=== PATIENT | female | born 1955 | race Caucasian/White ===

== ENCOUNTER → 2019-12-10 | Outpatient (CLI) | payer OTHER | LOC: LABNPT 06:44 | PROVIDERS: ATTEND Orthopaedic Surgery | DX: Z20.828 Contact with and (suspected) exposure to other viral communicable diseases (principal) | CPT/HCPCS: 87635 ==

== ENCOUNTER 2023-05-24 11:01 | Outpatient (CLI) | payer MEDICARE, OTHER ==
[~2023-05-24] VITALS: Ht 167.6 cm; Wt 74.8 kg
[2023-05-25] MEDS ORDERED: PANT40TA2 PO (11:55)
== END 2023-05-24 15:01 | disposition home or self-care (01) ==
LOC: PREOP 11:01
PROVIDERS: ATTEND Surgery
DX: Z01.818 Encounter for other preprocedural examination (principal)

== ENCOUNTER 2023-05-25 10:17 | Day surgery (SDC) | payer MEDICARE, OTHER ==
[~2023-05-25] VITALS: Ht 167.6 cm; Wt 74.8 kg
[2023-05-25] MEDS ORDERED: LACTATED RINGERS 1,000 ML 1,000 ML IV STA (10:47)
[2023-05-25] MEDS ORDERED: HURRICAINE EXT TUBE (BENZOCAINE) XX PRN (11:00)
[2023-05-25] MEDS ORDERED: LIDOCAINE JELLY 2% 6 ML SYRINGE MM PRN (11:00)
[2023-05-25 11:32] VITALS: BP 173/93
--- NOTE | 2023-05-25 11:54 | Progress Note-Pre Operative ---
Pre-Operative Progress Note Date of Available H&P: May 25, 2023 Date H&P Reviewed: May 25, 2023 Time H&P Reviewed: 11:30 History & Physical: No changes noted Pre-Operative Diagnosis: GERD, dysphagia JUAN MANUEL HERNANDEZ MD May 25, 2023 11:54
[2023-05-25] MEDS ORDERED: PANT40TA2 PO (11:55)
--- NOTE | 2023-05-25 11:56 | Discharge Inst-Surgical ---
D/C Lap Instructions-KIDO New, Converted, or Re-Newed RX: RX on Chart Follow Up Activity as tolerated High Fiber Diet 25g or more per day Avoid Alcohol, Caffeine, Spicy [place] and Acid foods. Drink 64 fluid oz or more of fluids per day. Symptoms to Report: Fever over 101 degree F, Nausea/Vomiting If any problems/questions: Contact your physician or go to Emergency Room JUAN MANUEL HERNANDEZ MD May 25, 2023 11:56
[2023-05-25] MEDS ORDERED: ONDANSETRON 4 MG ORAL DISSOLVE TABLET PO PRN (12:00)
[2023-05-25] MEDS ORDERED: ONDANSETRON INJECTION 4 MG/2 ML (SDV) IVP PRN (12:00)
[2023-05-25] MEDS ORDERED: LIDOCAINE JELLY 2% 6 ML SYRINGE ONE (12:44)
[2023-05-25 13:16] VITALS: BP 108/64
[2023-05-25 13:21] VITALS: BP 111/62
[2023-05-25 13:25] VITALS: BP 111/62
--- NOTE | 2023-05-25 13:42 | Progress Note-Post Operative ---
Post-Operative Progess Note Surgeon (s)/Patternator (s) Surgeon JUAN MANUEL HERNANDEZ MD Patternator: none Pre-Operative Diagnosis GERD, dysphagia Post-Operative Diagnosis reflux esophagitis(grade B-C), dist esoph stricture, mod-large HH(4cm), mild gastritis. Procedure & Operative Findings Date of Procedure 05/25/23 Procedure Performed/Findings EGD with bx and balloon dilatation. Anesthesia Type mac Estimated Blood Loss Estimated blood loss (mL): minimal Specimens/Packing Specimens Removed ge jxn, antrum JUAN MANUEL HERNANDEZ MD May 25, 2023 13:42
[2023-05-25 13:55] VITALS: BP 139/91
[2023-05-25 14:20] VITALS: BP 139/91
--- NOTE | 2023-05-25 18:39 | OPERATIVE REPORT ---
DATE OF SERVICE: 05/25/2023 ATTENDING PRIMARY CARE PHYSICIAN: Dr. Roxanne Cope. PREOPERATIVE DIAGNOSES: Dysphagia, gastroesophageal reflux disease. POSTOPERATIVE DIAGNOSES: Reflux esophagitis, Trego grade B to C with distal esophageal stricture. Moderate to large size hiatal hernia approximately 4 cm in size, mild gastritis, no distal obstructions. PROCEDURE: EGD with biopsy and balloon dilatation. SURGEON: Juan Manuel Hernandez MD ANESTHESIA: Monitored anesthesia care. ESTIMATED BLOOD LOSS: Minimal. FINDINGS: Reflux esophagitis, Trego grade B to C with distal esophageal stricture. Moderate to large size hiatal hernia approximately 4 cm in size, mild gastritis, no distal obstructions. DISPOSITION: The patient tolerated the procedure well. INDICATIONS: The patient is a 67-year-old female who states that she has had a history of reflux and regurgitation for the past 2 years; however, this has progressed to issues with dysphagia for specific types of foods, which encompassed lean meats, dry breads and crackers as well as large amounts of raw vegetables. She states that the pressure sensation in the substernal region would ensue and this would usually be followed by regurgitation. She does not report any hematemesis, no coffee-ground emesis. She has never been evaluated with an upper endoscopy before in the past and is currently not on any acid reduction medications. DESCRIPTION OF PROCEDURE: The patient was brought to the endoscopy suite and laid in the left lateral decubitus position. After adequate IV pain and sedative medications and monitored anesthesia care, the mouthpiece was applied. The endoscope was then placed in the mouth, visualizing the pharynx and hypopharyngeal region. Vocal cords, epiglottis and vallecula identified and appeared to be normal. The endoscope was then gently intubated in the esophageal opening and esophagus insufflated. The endoscope was then advanced through the first, second, third portions of esophagus; at the level of the GE junction, reflux esophagitis between Trego grade B and C identified with a moderate distal esophageal stricture. A biopsy was taken with forceps with visualization of good hemostasis. The endoscope was then advanced into the stomach and endoscope retroflexed visualizing a moderate size hiatal hernia approximately 4 cm in size. There was a mild gastritis. No formal ulcerations, polyps or any neoplasms. A biopsy was taken of the antrum to rule out H. pylori with visualization of good hemostasis. The endoscope was then advanced into the pylorus and the first and second portion of the duodenum, which appeared normal with no distal obstructions. The endoscope was then slowly withdrawn while taking a second look. The balloon was then placed in the stomach and pulled back to the area of the stricture. We then proceeded with graded dilatation from 2, 4 then eventually 6 atmospheres of pressure with 60 seconds in between. Once we hit 6 atmospheres of pressure or 20 mm in luminal diameter, we encountered moderate resistance and left the balloon in place for 120 seconds. The balloon was then desufflated and removed with visualization of good hemostasis as well as no mucosal tears. The endoscope was then slowly withdrawn while taking a second look and suctioning of residual air with no additional findings. The patient tolerated the procedure well. We will recommend continued medical management with the necessary lifestyle and dietary accommodation, which would encompass small and more frequent meals, avoidance of eating at night as well as head elevation while lying supine. Also, not overeating per sitting. She also needs to avoid caffeinated beverages, spicy, greasy and acidic foods. We will also start her on pantoprazole 40 mg daily. It was explained to her that the root cause of her reflux and the development of the stricture being the hiatal hernia; however, she is only mild to moderately symptomatic at this time and has never tried medical management and we will proceed with medical management for now and it was also explained to the patient, there is a significant recurrence rate for the strictures and if she does redevelop dysphagia type of symptoms, she will have follow up in the office for a repeat dilatation. Job ID: [id number] DocumentID: [id number] Dictated Date: 05/25/2023 13:37:19 Filter Tip Catcher Date: 05/25/2023 18:37:00 Dictated By: JUAN MANUEL HERNANDEZ MD
== END 2023-05-25 14:20 | disposition home or self-care (01) ==
LOC: ENDO 10:17
PROVIDERS: ATTEND Surgery
DX: K21.00 Gastro-esophageal reflux disease with esophagitis, without bleeding (principal); K22.2 Esophageal obstruction; K44.9 Diaphragmatic hernia without obstruction or gangrene; K29.50 Unspecified chronic gastritis without bleeding
CPT/HCPCS: 43239; 43249; G0416; 88305